=== PATIENT | female | born 1960 | race Two or more races ===

== ENCOUNTER 2020-10-27 11:47 | Emergency (ER) | payer MEDICAID, OTHER ==
[~2020-10-27] VITALS: Ht 152.4 cm; Wt 57.6 kg
[2020-10-27] MEDS ORDERED: SODIUM CHLORIDE 0.9% 1,000 ML IV ONE ×2 (12:15)
[2020-10-27] MEDS ORDERED: KETOROLAC TROMETH 30 MG/ML 1ML VIAL IV ONE (12:45)
[2020-10-27 13:34] LABS: Basophils # (auto) 0.1 10 ^3/uL (0-0.2); Basophils % (auto) 1.2 % (0.0-2.0); Eosinophils # (auto) 0.1 10 ^3/uL (0-0.8); Eosinophils % (auto) 1.2 % (0.0-7.0); Hemoglobin 14.3 g/dL (12.2-16.2); Lymphocytes % (auto) 8.8 % (10.0-50.0); Mean Corpuscular Hemoglobin 32.7 pg (28.0-32.0); Mean Corpuscular Hgb Conc. 34.9 g/dL (32.0-36.0); Mean Corpuscular Volume 93.5 fL (80.0-100.0); Monocytes # (auto) 0.7 10 ^3/uL (0-1.3); Monocytes % (auto) 6.8 % (0.0-12.0); Nucleated Red Blood Cells % 0.1 %; Red Blood Cells 4.39 10^6/uL (4.0-5.20); White Blood Cell 10.9 10^3/uL (4.4-10.8)
[2020-10-27 13:41] LABS: Urine Bacteria NONE SEEN /hpf (None Seen); Urine Blood 2+ /uL (Negative); Urine Mucus FEW (None Seen); Urine Specific Gravity 1.017 (1.001-1.035); Urine WBC 17 /hpf (0 - 5)
[2020-10-27 14:05] LABS: Albumin 4.3 g/dL (3.4-5.0); Anion Gap 4 (5-15); Blood Urea Nitrogen 10 mg/dL (7-18); Calcium 8.8 mg/dL (8.5-10.1); Carbon Dioxide 27 mmol/L (21-32); Chloride 104 mmol/L (98-107); Glucose 100 mg/dL (74-106); Sodium 135 mmol/L (136-145)
[2020-10-27 14:12] LABS: Alanine Aminotransferase 30 U/L (13-56); Alkaline Phosphatase 74 U/L (45-117); Aspartate Aminotransferase 11 U/L (15-37); BUN/Creatinine Ratio 15.2; Bilirubin, Total 0.9 mg/dL (0.2-1.0); GFR African American 117 mL/min; GFR Non-African American 97 mL/min; Total Protein 8.5 g/dL (6.4-8.2)
[2020-10-27 14:37] VITALS: BP 129/69
== END 2020-10-27 15:29 | disposition home or self-care (01) ==
LOC: ER 11:47
DX: N39.0 Urinary tract infection, site not specified (principal); G89.29 Other chronic pain; M54.9 Dorsalgia, unspecified; I10 Essential (primary) hypertension
CPT/HCPCS: 36415; 71045; 74176; 80053; 81001; 84484; 85025; 93005; 96374; 99285; J1885; J7030

== ENCOUNTER 2024-07-10 08:46 | Emergency (ER) | payer MEDICARE, MEDICAID ==
[~2024-07-10] VITALS: Ht 152.4 cm; Wt 58.5 kg
--- NOTE | 2024-07-10 09:29 | DVH ---
EXAM: XY CERVICAL SPINE 3V HISTORY: PAIN, NO INJURY COMPARISON: None TECHNIQUE: AP, lateral, and odontoid views of the cervical spine were performed. FINDINGS: No cervical fracture, listhesis, or prevertebral soft tissue edema are identified. There is moderate to severe degenerative disc disease and facet arthropathy. IMPRESSION: Degenerative changes of the cervical spine without evidence of fracture. If the patient complains of upper extremity radicular symptoms, consider follow-up noncontrast MRI of the cervical spine for fur ther evaluation.
[2024-07-10 09:31] VITALS: BP 119/89; PULSE 91; RESP 16; TEMP 98.3; O2SAT 97
--- NOTE | 2024-07-10 09:36 | ED.PDOC ---
Back pain HPI HPI Comments A 63 YEAR OLD FEMALE PRESENTS TO THE ED WITH COMPLAINT OF NECK PAIN. PATIENT STATES SHE HAS BEEN EXPERIENCING RIGHT-SIDED NECK PAIN THAT IS WORSE WITH MOVEMENT FOR THE PAST 1 WEEK. PATIENT NOTES SHE SLEPT WITH ONE PILLOW 1 WEEK AGO AND THEN HER PAIN STARTED. PT WENT TO URGENT CARE AND GOT MOTRIN AND FLEXERIL MEDICATIONS. PATIENT DENIES NECK INJURY, FEVER, CHILLS, SHORTNESS OF BREATH, CHEST PAIN, ABDOMINAL PAIN, NAUSEA, VOMITING, HEADACHE, OR OTHER COMPLAINTS. NO OTHER SYMPTOMS OR MODIFYING FACTORS AT THIS TIME. PATIENT IS ALERT, ORIENTED X 4, AND HAS STEADY GAIT. Chief Complaint: Neck Pain Time Seen by MD: 08:56 Primary Care Provider: CINTHYA Reviewed Notes: Nurses Notes, Medications, Allergies Allergies: Coded Allergies: NO KNOWN ALLERGIES (Unverified , 10/27/20) Information Source: Patient Mode of Arrival: Ambulatory Timing: Days Duration: Since onset, Days Location of Back pain: (R) Cervical Severity: Moderate Prehospital treatment: None Quality: Aching, Cramping Onset: Spontaneous History of: None Modifying Factors: Movement, Twisting Associated signs and symptoms: None Past Medical History PAST MEDICAL HISTORY: HTN Surgical History: SENIOR PATROL AGENT History: No Pertinent SENIOR PATROL AGENT History Family History Family History: Reviewed,noncontributory to illness Social History Smoker: Non-Smoker Alcohol: Denies ETOH Use Drugs: Denies Drug Use Lives In: Home Constitutional: denies: chills, diaphoresis, fatigue, fever, malaise, sweats, weakness, others EENTM: denies: blurred vision, double vision, ear bleeding, ear discharge, ear drainage, ear pain, ear ringing, eye pain, eye redness, hearing loss, mouth pain, mouth swelling, nasal discharge, nose bleeding, nose congestion, nose pain, photophobia, tearing, throat pain, throat swelling, voice changes, others Respiratory: denies: cough, hemoptysis, orthopnea, SOB at rest, shortness of breath, SOB with excertion, stridor, wheezing, others Cardiovascular: denies: chest pain, dizzy spells, diaphoresis, Dyspnea on exertion, edema, irregular heart beat, left arm pain, lightheadedness, palpitations, PND, syncope, others Gastrointestinal: denies: abdomen distended, abdominal pain, blood streaked bowels, constipated, diarrhea, dysphagia, difficulty swallowing, hematemesis, melena, nausea, poor appetite, poor fluid intake, rectal bleeding, rectal pain, vomiting, others Genitourinary: denies: abnormal vagina bleeding, burning, dyspareunia, dysuria, flank pain, frequency, hematuria, incontinence, pain, , vagina discharge, urgency, others Neurological: denies: dizziness, fainting, headache, left sided numbness, left sided weakness, numbness, paresthesia, pre-existing deficit, right sided numbness, right sided weakness, seizure, speech problems, tingling, tremors, weakness, others Musculoskeletal: reports: muscle pain, neck pain; denies: back pain, gout, joint pain, joint swelling, muscle stiffness, others Integumetry: denies: bruises, change in color, change in hair/nails, dryness, laceration, lesions, lumps, rash, wounds, others Allergic/Immunocompromised: denies: Difficulty Healing, Frequent Infections, Hives, Itching, others Hematologic/Lymphatic: denies: anemia, blood clots, easy bleeding, easy bruising, swollen glands, others Endocrine: denies: excessive hunger, excessive sweating, excessive thirst, excessive urination, flushing, intolerance to cold, intolerance to heat, unexplained weight gain, unexplained weight loss, others Psychiatric: denies: anxiety, bipolar disorder, depression, hopeless, panic disorder, schizophrenia, sleepless, suicidal, others All Other Systems: Reviewed and Negative Physical Exam General Appearance: No Apparent Distress, Normal HEENT: Normal ENT Inspection, PERRL/EOMI, Pharynx Normal, TMs Normal Neck: Limited Range of Motion, Normal Inspection, Supple, Tender Lateral (AND MUSCLE SPASM ON RIGHT SIDE NECK, NO BONY TENDERNESS AND SWELLING. ) Respiratory: Chest Non-Tender, Lungs Clear, No Accessory Muscle Use, No Respiratory Distress, Normal Breath Sounds Cardiovascular: No Edema, No JVD, No Murmur, No Gallop, Normal Peripheral Pulses, Regular Rate/Rhythm Breast Exam: Deferred Gastrointestinal: No Organomegaly, Non Tender, No Pulsatile Mass, Normal Bowel Sounds, Soft Genitalia: Deferred Pelvic: Deferred Rectal: Deferred Extremities: No calf tenderness, Normal capillary refill, Normal inspection, Normal range of motion, Non-tender, No pedal edema Musculoskeletal : Apperance: Normal Neurologic: Alert, stem maker II-XII nml as Tested, No Motor Deficits, Normal Affect, Normal Mood, No Sensory Deficits Cerebellar Function: Normal Reflexes: Normal Skin: Dry, Normal Color, Warm Peripheral Pulses: 2+ carotid (R), 2+ carotid (L) Lymphatic: No Adenopathy Was a procedure done? Was a procedure done?: No Back Pain Differential Dx Differential Diagnosis: DJD, Musculoskeletal Pain, Strain Other Differential Diagnosis DDD, CERVICAL RADICULOPATHY, TORTICOLLIS X-Ray, Labs, Meds, VS Vital Signs Date Time Temp Pulse Resp B/P (MAP) Pulse Ox O2 Delivery O2 Flow Rate FiO2 07/10/24 09:31 98.3 91 16 119/89 (99) 97 98.3 07/10/24 09:31 91 16 97 Room Air 07/10/24 08:51 98.3 19 16 89/ 97 98.3 Current Medications Medications (Trade) Dose Ordered Sig/Josue Route Start Time Stop Time Status Last Admin Acetaminophen/ Hydrocodone Bitart ([place] 5/325MG Tab) 1 tab ONCE ONCE PO 07/10/24 09:30 07/10/24 09:31 DC 07/10/24 09:43 EXAM: XY CERVICAL SPINE 3V HISTORY: PAIN, NO INJURY COMPARISON: None TECHNIQUE: AP, lateral, and odontoid views of the cervical spine were performed. FINDINGS: No cervical fracture, listhesis, or prevertebral soft tissue edema are identified. There is moderate to severe degenerative disc disease and facet arthropathy. IMPRESSION: Degenerative changes of the cervical spine without evidence of fracture. If the patient complains of upper extremity radicular symptoms, consider follow-up noncontrast MRI of the cervical spine for further evaluation. ATED BY: ELLIE LAI MD DICTATED DATE/TIME: 07/10/24925 SIGNED BY: ELLIE LAI MD SIGNED DATE/TIME: 07/10/24925 CC: X-Ray, Labs, Meds, VS Comment EXTERNAL MEDICAL RECORDS REVIEWED: [NONE] INDEPENDENT HISTORIANS: [NONE] SOCIAL DETERMINANTS OF HEALTH: [NONE] LABS ORDERED: NONE REVIEWED AND INTERPRETED RESULTS: NONE IMAGING ORDERED: NONE TREATMENTS ORDERED: [place] 5/325 MG P.O. PROCEDURES PERFORMED: NONE CRITICAL CARE TIME: NONE I HAVE DISCUSSED THE PATIENT WITH THE ATTENDING PHYSICIAN [PHYSICIAN'S NAME] AND HE AGREES WITH THE PATIENT'S PLAN OF CARE AND DISPOSITION. BASED ON HISTORY OF PRESENT ILLNESS, AND PHYSICAL EXAM, PATIENT WILL BE DISCHARGED HOME. DISCUSSED PLAN FOR DISCHARGE HOME WITH RX: MOTRIN 800MG. MEDICATION WARNINGS GIVEN. SHARED DECISION MAKING: DISCUSSED WITH PATIENT THAT THEIR WORKUP WAS NORMAL. PATIENT INSTRUCTED TO FOLLOW UP WITH PRIMARY CARE PROVIDER IN 1-2 DAYS FOR RE- EVALUATION OF SYMPTOMS. PATIENT VERBALIZES UNDERSTANDING TO RETURN TO ED FOR NEW OR WORSENING SYMPTOMS OR IF FOLLOW UP WITH PCP CANNOT BE OBTAINED. PATIENT FEELS COMFORTABLE GOING HOME AT THIS TIME. ALL QUESTIONS ADDRESSED AT TIME OF DISCHARGE. Images Reviewed?: Images reviewed and evaluated by me Time of 1ST Reevaluation: 10:00 Reevaluation 1ST: Improved Patient Education/Counseling: Diagnosis, Treatment, Need For Follow Up Family Education/Counseling: Diagnosis, Treatment, Need For Follow Up Medical Screening: No EMC Exist At This Time Departure 1 Departure Time of Disposition: 10:00 Impression: Primary Impression: Torticollis Additional Impression: DDD (degenerative disc disease), cervical Disposition: 01 HOME / SELF CARE / HOMELESS Condition: Stable Additional Instructions: FOLLOW-UP WITH PCP IN 1 TO 2 DAYS. TAKE MEDICATIONS PRESCRIBED. RETURN TO ED FOR ANY NEW OR WORSENING SYMPTOMS. e-Prescriptions Ibuprofen (Ibuprofen) 800 Mg Tab 1 TAB PO TID, #30 TAB Prov: RAJANI POZO 07/10/24 Discharged With: Self Critical Care Note Critical Care Time?: No Stability Stability form required: No I personally scribed for RAJANI POZO ([email or web address]) on 07/10/24 at 09:36. Electronically submitted by Omega Fontaine ([email or web address]). RAJANI POZO Jul 10, 2024 09:36
[2024-07-10] MEDS: HYDROcodone-ACET 5/325MG TAB PO ONE (09:43)
[2024-07-10] MEDS ORDERED: IBUP-1456 PO (09:55)
== END 2024-07-10 10:02 | disposition home or self-care (01) ==
LOC: ER 08:53
DX: M43.6 Torticollis (principal); M50.30 Other cervical disc degeneration, unspecified cervical region; I10 Essential (primary) hypertension
CPT/HCPCS: 72040

== ENCOUNTER 2024-11-04 13:46 | Outpatient (CLI) | payer MEDICARE, MEDICAID ==
[~2024-11-04 13:46] MED LIST: IBUP-1456 PO
== END 2024-11-04 17:00 | disposition home or self-care (01) ==
LOC: LAB 13:46
PROVIDERS: ATTEND Internal Medicine Gastroenterology
DX: R19.7 Diarrhea, unspecified (principal)
CPT/HCPCS: 36415; 82270; 85048; 87177

== ENCOUNTER 2025-03-30 11:46 | Day surgery (SDC) | payer OTHER, MEDICAID ==
[2025-03-26 13:38] LABS: Hematocrit 41.0 % (36.0-46.0); Hemoglobin 14.0 g/dL (12.2-16.2); Mean Corpuscular Hemoglobin 31.6 pg (28.0-32.0); Mean Corpuscular Volume 92.5 fL (80.0-100.0); Nucleated Red Blood Cells % 0.0 %
[2025-03-26 13:52] LABS: INR 1.03 (0.9-1.15); Partial Thromboplastin Time 29.5 SEC (24.5-34.5); Prothrombin Time 10.9 sec (9.3-11.8)
[2025-03-26 14:03] LABS: Alanine Aminotransferase 20 U/L (7-40); Albumin 4.6 g/dL (3.2-4.8); Alkaline Phosphatase 72 U/L (46-116); Anion Gap 8 (5-15); BUN/Creatinine Ratio 18.6 (10.0-20.0); Bilirubin, Total 0.6 mg/dL (0.2-1.0); Blood Urea Nitrogen 13 mg/dL (9-23); Calcium 9.4 mg/dL (8.7-10.4); Carbon Dioxide 30 mmol/L (20-31); Chloride 106 mmol/L (98-107); Glucose 95 mg/dL (74-106); Potassium 4.2 mmol/L (3.5-5.1); Sodium 144 mmol/L (136-145); Total Protein 7.3 g/dL (5.7-8.2)
[~2025-03-30] VITALS: Ht 152.4 cm; Wt 58.1 kg
[~2025-03-30 11:46] MED LIST changes: -IBUP-1456 PO; +LIDOCAINE VISCOUS 2% 15ML UD ONE; +LOSA-533 PO; +METO25TA93 PO; +ROSU5TAB5 PO; +SERT25TA84 PO; +SODIUM CHLORIDE LOCK 10 ML ONE
[2025-03-30 14:25] VITALS: PULSE 61; RESP 18; O2SAT 100
[2025-03-30] MEDS: LIDOCAINE VISCOUS 2% 15ML UD PO ONE (14:30)
[2025-03-30] MEDS: MIDAZOLAM HCL 5 MG/ML-1ML VIAL IV ONE (14:30)
[2025-03-30] MEDS: fentaNYL CITRATE 100 MCG/2 ML VL ONE (14:30)
[2025-03-30] MEDS: diphenhydrAMINE HCL 50 MG/1 ML VL ONE (14:30)
[2025-03-30] MEDS: MIDAZOLAM HCL 5 MG/ML-1ML VIAL ONE (14:36)
[2025-03-30 14:50] VITALS: PULSE 58; RESP 12; TEMP 97.5; O2SAT 95
--- NOTE | 2025-03-30 14:54 | DVHOP2 ---
Operative Report DATE OF OPERATION: 03/30/25 PROCEDURE: Upper Endoscopy with biopsy and dilation of esophagus unguided. PREOPERATIVE INDICATION: The patient is a 64 -year-old female undergoing endoscopy for oropharyngeal dysphagia POSTOPERATIVE DIAGNOSES: 1. 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 A 3 cm sliding-type hiatal hernia with a Schatzki's ring at the GE junction 3. Mild antral gastritis with pre-pyloric antral gastric erosions PROCEDURE PERFORMED BY: Chrystal Morrell GI NURSE: Alirio SCOPE: Olympus videoendoscope. ASA CLASS: 2 PREOPERATIVE MEDICATIONS: Versed 3 mg, Fentanyl 75 mcg, Benadryl 50 mg I administered moderate sedation throughout this _9_ minutes procedure. An independent trained observer pushed medications at my direction, and monitored the patient's level of consciousness and physiological status throughout. PROCEDURE IN DETAIL: After obtaining an informed consent, the patient was placed on left lateral decubitus position. The patient was then sedated with the above medications. A bite block was placed between her teeth. The endoscope was then passed through the oropharynx, into the esophagus, and through the stomach and pylorus up to the second and third part of the duodenum. The endoscope was then withdrawn. The 2nd and 3rd part of the duodenum and the duodenal bulb were normal. Duodenal biopsies were obtained The pre-pyloric area antrum and distal body showed mild gastritis with pre- pyloric antral gastric erosions and tiny ulcers On retroflexion the fundus and cardia were normal. The endoscope was then straightened withdrawn into distal esophagus Patient had a 3 cm sliding-type hiatal hernia with a slightly tight Schatzki's ring at the GE junction. The remaining distal and proximal esophagus and oropharynx were unremarkable The endoscope was then withdrawn. A Tello dilator number [id number] was passed through the distal esophagus with slight resistance. A repeat endoscopy confirmed adequate dilatation There was no mucosal injury or bleeding. GE junction and gastric biopsies were obtained The patient tolerated the procedure well without difficulty. COMPLICATIONS : None SPECIMENS: Duodenal biopsies Gastric biopsies GE junction biopsies DISPOSITION: Stable D/C to home PLAN: 1. Await for biopsy result 2. Will place pt on Protonix 40 mg bid 3. Resume GI soft diet advance as tolerated, chew food well and drink warm liquids with her meals 4. Outpatient follow up with me in 4-6 weeks to review results and discuss further management CHRYSTAL MORRELL MD Mar 30, 2025 14:54
[2025-03-30 14:55] VITALS: PULSE 57; RESP 14; O2SAT 98
[2025-03-30 15:00] VITALS: PULSE 65; RESP 12; O2SAT 97
[2025-03-30 15:30] VITALS: BP 153/74; PULSE 55; RESP 12; O2SAT 97
== END 2025-03-30 15:40 | disposition home or self-care (01) ==
LOC: GI 11:46
PROVIDERS: ATTEND Internal Medicine Gastroenterology
DX: R13.12 Dysphagia, oropharyngeal phase (principal); K44.9 Diaphragmatic hernia without obstruction or gangrene; K29.70 Gastritis, unspecified, without bleeding; K22.2 Esophageal obstruction; I10 Essential (primary) hypertension; E78.00 Pure hypercholesterolemia, unspecified; F41.9 Anxiety disorder, unspecified; Z79.899 Other long term (current) drug therapy; Z98.890 Other specified postprocedural states; Z98.891 History of uterine scar from previous surgery; Z90.89 Acquired absence of other organs
CPT/HCPCS: 36415; 43239; 43450; 80053; 85025; 85610; 85730; 88305; 88342; A4649; J1200; J2250; J3010; J7030; 99152